=== PATIENT | female | born 1945 | race Caucasian/White ===

== ENCOUNTER 2017-09-13 13:08 | Outpatient (CLI) | payer MEDICARE, BC ==
--- NOTE | 2017-09-13 15:19 | RAD ---
PA AND LATERAL CHEST RADIOGRAPH: Date: 09-13-17 History: Dyspnea. Comparison: 03-10-17 FINDINGS: Cardiac silhouette is mildly enlarged. Pulmonary vasculature is within normal limits. Lungs remain cl ear. There has been no interval change from the prior exam. IMPRESSION: Mild cardiomegaly without evidence of an acute cardiopulmonary process. POS: [facility]
== END 2017-09-13 13:09 | disposition home or self-care (01) ==
LOC: RAD 13:08
PROVIDERS: ATTEND Internal Medicine Critical Care Medicine
DX: R06.00 Dyspnea, unspecified (principal); I51.7 Cardiomegaly
CPT/HCPCS: 71046

== ENCOUNTER 2019-03-20 13:13 | Outpatient (CLI) | payer MEDICARE, BC ==
--- NOTE | 2019-03-20 14:00 | RAD ---
2 views of chest 03/20/2019 COMPARISON: 09/13/2017 HISTORY: Short of breath FINDINGS: There is no pneumothorax, pleural fluid, focal consolidation, or alveolar edema. Heart and mediastinal contours are within normal limits. No acute osseous abnormality noted. Impression: No acute findings.
== END 2019-03-20 13:14 | disposition home or self-care (01) ==
LOC: RAD 13:13
PROVIDERS: ATTEND Internal Medicine Critical Care Medicine
DX: Z51.81 Encounter for therapeutic drug level monitoring (principal); R06.00 Dyspnea, unspecified; M48.062 Spinal stenosis, lumbar region with neurogenic claudication; Z79.891 Long term (current) use of opiate analgesic
CPT/HCPCS: 71046

== ENCOUNTER 2020-03-25 13:09 | Outpatient (CLI) | payer MEDICARE, BC ==
--- NOTE | 2020-03-25 13:27 | RAD ---
XR Chest Pa Lat STANDARD HISTORY: Dyspnea COMPARISON: 04/06/2019 FINDINGS: The heart size is normal. The lungs are well expanded without focal areas of consolidation, pneumothorax or pleural effusions. There are degenerative changes in the spine. IMPRESSION: No radiographic evidence of acute cardiopulmonary process.
== END 2020-03-25 13:10 | disposition home or self-care (01) ==
LOC: BICRAD 13:09
PROVIDERS: ATTEND Internal Medicine Critical Care Medicine
DX: R06.00 Dyspnea, unspecified (principal)
CPT/HCPCS: 71046

== ENCOUNTER 2021-03-30 13:19 | Outpatient (CLI) | payer MEDICARE, BC | END 2021-03-30 13:20 | disposition home or self-care (01) | LOC: BICRAD 13:19 | PROVIDERS: ATTEND Internal Medicine Critical Care Medicine | DX: R06.00 Dyspnea, unspecified (principal); J98.4 Other disorders of lung; R91.8 Other nonspecific abnormal finding of lung field | CPT/HCPCS: 71046 ==

== ENCOUNTER 2021-11-20 09:47 | Outpatient (CLI) | payer MEDICARE, BC | END 2021-11-20 09:48 | disposition home or self-care (01) | LOC: RAD 09:47 | PROVIDERS: ATTEND Internal Medicine Critical Care Medicine | DX: R06.00 Dyspnea, unspecified (principal) | CPT/HCPCS: 71046 ==

== ENCOUNTER 2023-03-29 13:13 | Outpatient (CLI) | payer MEDICARE, BC | END 2023-03-29 13:14 | disposition home or self-care (01) | LOC: RAD 13:13 | PROVIDERS: ATTEND Internal Medicine Critical Care Medicine | DX: R06.00 Dyspnea, unspecified (principal); J98.4 Other disorders of lung | CPT/HCPCS: 71046 ==

== ENCOUNTER 2024-03-26 10:32 | Outpatient (CLI) | payer MEDICARE | END 2024-03-26 10:33 | disposition home or self-care (01) | LOC: RAD 10:32 | PROVIDERS: ATTEND Internal Medicine Critical Care Medicine | DX: R06.00 Dyspnea, unspecified (principal) | CPT/HCPCS: 71046 ==

== ENCOUNTER 2025-05-20 09:13 | Outpatient (CLI) | payer MEDICARE, OTHER | END 2025-05-20 09:14 | disposition home or self-care (01) | LOC: RAD 09:13 | PROVIDERS: ATTEND Internal Medicine Critical Care Medicine | DX: R06.00 Dyspnea, unspecified (principal) | CPT/HCPCS: 71046 ==